=== PATIENT | female | born 1995 | race African-American/Black ===

== ENCOUNTER 2024-09-12 18:30 | Emergency (ER) | payer MEDICAID, SELFPAY ==
[2024-09-12 18:32] VITALS: BMI 33.8
[2024-09-12 18:55] VITALS: BP 124/80; PULSE 89; RESP 18; TEMP 36.9; O2SAT 99
[2024-09-12] MEDS: DIPHTH,PERTUSS(ACELL),TET VAC 0.5 ML SYR IMi (19:17)
--- NOTE | 2024-09-12 19:17 | PD.EDANIML ---
ED Animal Bite RME/HPI General Chief Complaint: Animal Bite Stated Complaint: DOG BITE TO RIGHT CALF Time Seen by Provider: 09/12/24 19:10 Arrival date/time: 09/12/24 18:30 28F with history of seizures presents to ED with dog bite on R calf from [facility]. Patient has not had a tetanus shot in the past 5 years. Limitations: no limitations Related Data Previous Rx's ?Medication ?Instructions ?Recorded lamotrigine 25 mg tablet 25 mg PO BID 30 days #60 tabs 10/14/23 epinephrine 0.3 mg/0.3 mL 0.3 ml subcut PRN PRN 02/01/24 injection, auto-injector hypersensitivity reaction #2 ea amoxicillin 875 mg-potassium 1 tab PO BID 5 days #10 tabs 09/12/24 clavulanate 125 mg tablet Allergies Allergy/AdvReac Type Severity Reaction Status Date / Time acetaminophen (From Tylenol) Allergy Verified 09/12/24 18:32 hazelnut Allergy Verified 09/12/24 18:32 raspberry Allergy Verified 09/12/24 18:32 topiramate Allergy Seizure Verified 09/12/24 18:32 Review of Systems Review of Systems Systems Reviewed: All systems reviewed, normal except as documented Constitutional Constitutional: Reports system reviewed and no additional complaints, except as documented, Denies fever(s) and Denies headache(s) ENT Ears, Nose, Mouth, and Throat: Denies disequilibrium and Denies headache(s) Cardiovascular Cardiovascular: Reports system reviewed and no additional complaints, except as documented, Denies chest pain and Denies dyspnea Respiratory Respiratory: Reports system reviewed and no additional complaints, except as documented, Denies cough and Denies dyspnea Gastrointestinal Gastrointestinal: Reports system reviewed and no additional complaints, except as documented, Denies abdominal pain, Denies nausea and Denies vomiting Integumentary/Breasts Skin/Breast: Reports as per HPI and Reports skin pain Neurologic Neurologic: Reports system reviewed and no additional complaints, except as documented, Denies confusion, Denies disequilibrium and Denies headache(s) Psychiatric Psychiatric: Denies confusion Past Medical History Past Medical History NEUROLOGIC: Negative Neurological Disorders CARDIAC: Negative Cardiac Disorders or Congestive Heart Failure RESPIRATORY: Negative Chronic Obstructive Pulmonary Disease (COPD) or Asthma GASTROINTESTINAL: Negative Gastrointestinal Disorders, Cirrhosis, Celiac Disease, Gall Bladder Disease, Esophageal Varices, Wahl's Esophagus, Colitis, Diverticulitis, Diverticulosis, Crohn's Disease or Gastroesophageal Reflux Disease GENITOURINARY: Negative Genitourinary Disorders, Renal Disease, Kidney Stones, Polycystic Kidney Disease, Neurogenic Bladder, Inguinal Hernia, Dialysis or Benign Prostatic Hyperplasia REPRODUCTIVE: Negative Endometriosis, Genital Herpes, Gonorrhea, Pelvic Inflammatory Disease, Previous Pregnancies, Syphilis or Uterine Prolapse MUSCULOSKELETAL: Negative Musculoskeletal Disorders ENDOCRINE: Negative Endocrine Disorders, Diabetes Mellitus Type 1 or Diabetes Mellitus Type 2 HEMATOLOGIC: Negative Blood Disorders PSYCHO/SOCIAL: Positive Recreational Drug Use and Bipolar Disorder OTHER HISTORY: Positive Hospitalization; Negative Autoimmune Disease, Down Syndrome, Developmental Delay, Shingles, Falls, Blood Transfusions, Blood Transfusion Reaction, Anesthesia Reactions, Organ Transplant, Chemotherapy, Radiation Therapy, Hyperbaric Therapy, MRSA, VRSA, Vancomycin-Resistant Enterococci, Clostridium Difficile or Cancer Family History FAMILY HISTORY: Negative Family Respiratory Disorders, Family Cardiac Disorders, Family Gastrointestinal Problems or Family Cancer Surgical History SURGICAL: Negative Cardiac Surgery, Endocrine Surgery, Thyroidectomy, Ear Surgery, Abdominal Surgery, Nephrectomy, Joint Replacement, Neurologic Surgery, Brain Shunt, Mastectomy or Organ Transplant Social History SMOKING STATUS: Never smoker ED Exam General Limitations: Present no limitations General appearance: Present alert and in no apparent distress Head Head exam: Present atraumatic Eye Eye exam: Present normal appearance, PERRL and EOMI ENT ENT exam: Present normal exam, normal oropharynx and mucous membranes moist Neck Neck exam: Present normal inspection, full ROM and trachea midline Chest Chest inspection: Present normal inspection and symmetric chest wall rise Respiratory Respiratory exam: Present normal lung sounds bilaterally Cardiovascular Cardiovascular exam: Present regular rate, normal rhythm and normal heart sounds Abdominal Exam Abdominal exam: Present soft and normal bowel sounds Extremities Exam Extremities exam: Present full ROM Expanded Lower Extremity Exam Lower leg exam: Present full ROM and abrasion (R calf) Back Exam Back exam: Present normal inspection and full ROM Neurological Exam Neurological exam: Present alert, oriented X3 and CN II-XII intact Psychiatric Psychiatric exam: Present normal affect and normal mood Skin Skin exam: Present warm, dry, intact and normal color Course Quality Measures none Orders Category Date Time Status Tet,Diphth,Pertuss(Acell)-Tdap [Boostrix Vacc] Med 09/12/24 19:11 Discontinued 0.5 ml IMI .ONCE ONE Vital Signs Vital signs: Vital Signs Temperature 98.5 F 09/12/24 18:55 Pulse Rate 89 09/12/24 18:55 Respiratory Rate 18 09/12/24 18:55 Blood Pressure 124/80 09/12/24 18:55 Pulse Oximetry (%) 99 09/12/24 18:55 Oxygen Delivery Method Room Air 09/12/24 18:55 O2 at 99% on RA and WNLs Animal Bite MDM Narrative MDM Narrative:: 28F with history of seizures presents to ED with dog bite on R calf from a [facility]. Patient has not had a tetanus shot in the past 5 years. Physical exam reveals very minor skin abrasion on L calf. Gait normal. Patient is afebrile, calm, and alert. Wound cleaned/irrigated and bandaged. Meds and activities counselor given. Patient data External records reviewed:: [facility] previous records Clinical information provided by:: patient Social determinants that could affect healthcare access:: none Patient has the following chronic illnesses:: seizures How is presenting disease/condition affected by chronic disease/condition?: uneffected by Evaluation data The following diagnostics were reviewed and interpreted by me:: other (specify) (one) Lab and/or radiology exams considered but not ordered:: not ordered Interpretation Summary: n/a Medications / Prescriptions Medications or Prescriptions considered but not ordered:: ordered Medication administrations:: Medication Administration History Discontinued Medications Diphtheria/Tetanus/Acell Pertussis (Diphth,Pertuss(Acell),Tet Vac 0.5 Ml Syr) 0.5 ml IMi .ONCE ONE Stop: 09/12/24 19:12 above Consultations Consultation(s) initiated? (list below): No Diagnosis Differential diagnosis animal bite: dog bite Most likely diagnosis given after review of the tests above:: dog bite Admission Indicated Admission indicated?: not indicated Admission Request Was there a request for admission?: No Disposition Plan Disposition Plan: Discharge Discharge Attestation Discharge Attestation: The patient and all family members were given an opportunity to ask questions and understood the discharge instructions. Discharge instructions specifically effects, indications for sooner follow up or return to the emergency department, and the expected course of current diagnosis. Patient condition: Stable Discharge Plan Plan Patient Disposition: HOME (Self Care) Disposition Comment: Stable Prescriptions/Referrals Prescriptions/Med Rec: New amoxicillin-pot clavulanate 875-125 mg tablet 1 tab PO BID 5 Days Qty: 10 0RF No Action epinephrine 0.3 mg/0.3 mL auto-injector 0.3 ml subcut PRN PRN (Reason: hypersensitivity reaction) Qty: 2 0RF lamotrigine 25 mg tablet 25 mg PO BID 30 Days Qty: 60 2RF Problem List Clinical Impression: Dog bite Patient/Caregiver Discharge Instructions Education Materials: ED Dog Bite Additional Instructions: Please follow-up with PCP within 24-48 hours and return immediately if symptoms worsen. Print Language: Azeri Stand Alone Forms: Patient Portal Info Letter PA/TRANSMISSION INSPECTOR Supervising Physician PA/TRANSMISSION INSPECTOR Supervising Physician: Dr. Ponce
== END 2024-09-12 19:17 | disposition home or self-care (01) ==
LOC: SERX 19:25
PROVIDERS: Emergency Provider Emergency Medicine
DX: S80.872A Other superficial bite, left lower leg, initial encounter (principal); Z23 Encounter for immunization; W54.0XXA Bitten by dog, initial encounter
CPT/HCPCS: 90471; 90715; 99282